=== PATIENT | female | born 1950 | race Caucasian/White ===

== ENCOUNTER 2016-07-03 10:02 | Inpatient (IN) | payer MEDICARE, OTHER ==
--- NOTE | ~2016-07-03 | PUL ---
[facility] [address] [place]. [address] NAME: ABDIEL JAMES : 50 STATUS : DIS IN PAT#: [id number] AGE: 66 ADM/REG DATE : 07/03/16 MR#: [id number] REPORT SERV DATE: 07/04/16 DICTATED BY: IFTIKHAR ABARCA IV DATE: 07/04/16 REPORT STATUS : Draft TRANSCRIBED BY: CASSANDRA DATE: 07/04/16 PULMONARY FUNCTION TEST OVERNIGHT OXIMETRY DATE OF STUDY: 07/03/2016. REQUESTING PHYSICIAN: Kobe Vilchis M.D. Study is performed on room air. DURATION: Five hours and 56 minutes of data are available for review. RESULTS: The mean oxygen saturation was 93.9%. The lowest scored saturation was 87%. The patient spent two seconds with oxygen saturations less than 88%. There were periods of oxygen saturation variation of sawtooth pattern that at times met 4% variance. Several of these episodes were clustered. During the more significant periods of oxygen saturation variation, there is loss of data collection for approximately five minutes. IMPRESSION: No significant nocturnal hypoxemia on room air. There is a background pattern that would be consistent with obstructive sleep apnea that would be mild based on a desaturation index of eight per hour. This may under-call the severity of the events. I would suggest formal polysomnography if clinically indicated. ENRIQUE/CASSANDRA Iftikhar Abarca IV, M.D. / [id number] CC: Jean Pierre Coelho II, MD
--- NOTE | ~2016-07-03 | DS ---
Discharge Summary [facility] [address] [place]. [address] NAME: ABDIEL JAMES : 50 STATUS : DIS IN PAT#: [id number] AGE: 66 ADM/REG DATE : 07/03/16 MR#: [id number] REPORT SERV DATE: 07/04/16 DICTATED BY: JUAN STANFORD SCOT DATE: 07/04/16 REPORT STATUS : Draft TRANSCRIBED BY: MODL DATE: 07/04/16 ADMISSION DATE: 07/03/2016 DISCHARGE DATE: 07/04/2016 DISCHARGE DIAGNOSES: Include 1. Chest pain. 2. Coronary artery disease, status post a heart catheterization showing diffuse moderate coronary artery disease and 90% stenosis of the right posterior descending artery, no intervention was performed. 3. Obstructive sleep apnea that is untreated currently. 4. Anxiety and depression. 5. History of Gomes's esophagitis. DISCHARGE MEDICATIONS: As follows: Aspirin 81 mg daily, Coreg 3.125 mg p.o. twice a day, vitamin D 5000 units p.o. daily, fenofibrate 160 mg at bedtime, Prozac 10 mg daily, Lipitor 40 mg at bedtime and a prescription was written for this, Prilosec 40 mg daily, Brilinta 90 mg p.o. twice a day, Klonopin 1 mg at bedtime scheduled, Tylenol 650 mg every eight hours p.r.n. HISTORY OF PRESENT ILLNESS: This is a very pleasant 66-year-old white female who originally presented to [facility] Emergency Room with complaints of chest pain. Please see the initial H and P of Dr. Juice Johnson as the patient was admitted to the Hospitalist Service for further evaluation and treatment. CONSULTATIONS DURING THIS ADMISSION: Include Cardiology, Dr. Sami Blake. PROCEDURES AND IMAGING DURING THIS ADMISSION: Include a CTA of the chest showing no pulmonary embolus, some probable post-inflammatory scarring at the periphery, both superior lungs, and calcified coronary arteries, the above-described heart catheterization, and an echocardiogram showing an ejection fraction of 60%, some mild diastolic dysfunction, and a nuclear myocardial imaging, stress test showing intermediate-risk stress test. Please see the interim discharge summary from Kraig Davidson M.D. as the patient was transferred from [facility] to [facility] for the above-described heart catheterization. HOSPITAL COURSE: I saw the patient, status post the above-described heart catheterization, she had recovered well. In discussion, she related that her symptoms included shortness of breath and particularly waking up with a smothering feeling. She said that she did have a history of obstructive sleep apnea but had not yet treated this with CPAP, and it had been some time since she had had a sleep study. She had actually seen Dr. Zelaya, sock drier, as an outpatient a few weeks ago, and I have instructed her to follow up with Dr. Zelaya to obtain another outpatient sleep study and to certainly treat her sleep apnea. She spent the night, and an overnight oximetry test was done here; however, it was within normal limits and did not show a significant desaturation. Further discussion with the patient of weaning off her Klonopin, and I have instructed her to follow up with her primary care in regard to this. We have added statin therapy to her overall medication regimen, and she will be following up with Cardiology in three to four weeks. At that time if she continues to have Discharge Summary [address] [address] NAME: ABDIEL JAMES : 50 STATUS : DIS IN PAT#: [id number] AGE: 66 ADM/REG DATE : 07/03/16 MR#: [id number] REPORT SERV DATE: 07/04/16 DICTATED BY: JUAN STANF[place] DATE: 07/04/16 REPORT STATUS : Draft TRANSCRIBED BY: CASSANDRA DATE: 07/04/16 chest pressure or chest pain, consideration for adding Imdur to her regimen. The patient was felt safe for discharge home on 07/04/2016 with the above medications, followup plan, and further recommendations; she is in agreement with this plan. Questions were answered at bedside. Please note, greater than 30 minutes was spent on this discharge for medication teaching, followup planning, and further disposition. CSC/MODL Juan Stanford NP / [id number] CC: Jean Pierre Coelho II, MD
[~2016-07-03 10:02] MED LIST: 8 HOUR650 MG PO; ALTA2.5 PO; ASA5GR PO; ASAB PO; ASABAYER PO; BRILINTA90 MG PO; CO Q-10100 MG PO; COREG3 PO; CULTURELLE PO; D 5000 PO; EZFE 200200 MG PO; FERRETTS325 MG PO; GLUCCHONDR PO; KLONO1 PO; KLOR-CON 1010 MEQ PO; KLOR-CON M1010 MEQ PO; L20 PO; LIPITOR40; LOFIB160 PO; LOFIBRA160 MG PO; LOP25 PO; LORTAB 5 PO; MOBIC15 MG PO; MOBIC7.5 PO; MUCINEX DM PO; NITROSTAT0.4 MG SL; OMNICEF300 PO; PREDNISONE DOSE PACK; PRILO PO; PRILOSEC40 MG PO; PROAIR HFA INH; PROAIRRESP INH; PROVIGIL1 PO; PROZ10 PO; TOPXL25 PO; VITAMIN D31000 UNIT PO; ZOCOR20 PO
[2016-07-04] MEDS ORDERED: LIPITOR40 PO (13:11)
== END 2016-07-04 13:55 | disposition home or self-care (01) | DRG 287 ==
LOC: CORLMH 10:02 → SSU1 10:56
PROC: 4A023N7 Measurement of Cardiac Sampling and Pressure, Left Heart, Percutaneous Approach (ICD-10-PCS; principal; 2016-07-03)
PROC: B2151ZZ Fluoroscopy of Left Heart using Low Osmolar Contrast (ICD-10-PCS; 2016-07-03)
PROC: B2111ZZ Fluoroscopy of Multiple Coronary Arteries using Low Osmolar Contrast (ICD-10-PCS; 2016-07-03)
DX: I25.110 Atherosclerotic heart disease of native coronary artery with unstable angina pectoris (principal); I10 Essential (primary) hypertension; F32.9 Major depressive disorder, single episode, unspecified; G47.33 Obstructive sleep apnea (adult) (pediatric); F41.9 Anxiety disorder, unspecified; K22.70 Barrett's esophagus without dysplasia; E66.9 Obesity, unspecified; E78.00 Pure hypercholesterolemia, unspecified; I25.2 Old myocardial infarction; Z95.5 Presence of coronary angioplasty implant and graft; Z88.1 Allergy status to other antibiotic agents; Z82.49 Family history of ischemic heart disease and other diseases of the circulatory system; Z87.891 Personal history of nicotine dependence; Z68.35 Body mass index [BMI] 35.0-35.9, adult; K21.9 Gastro-esophageal reflux disease without esophagitis; R06.00 Dyspnea, unspecified; E78.2 Mixed hyperlipidemia
CPT/HCPCS: 71010; 71275; 78452; 80048; 80053; 80061; 82550; 83735; 84484; 85025; 85610; 85730; 93005; 93017; 93458; 94762; 99152; 99153; 99285; A9270-GY; A9502; C1769; C1887; C1894; C8929; J2250; J2785; J3010; Q9957; Q9967